=== PATIENT | female | born 2000 | race Hispanic/Latino ===

== ENCOUNTER 2021-03-10 09:04 | Emergency (ER) | payer BC ==
[2021-03-10] MEDS ORDERED: Acetaminophen 500 MG TAB ONE (09:26)
[2021-03-10 10:22] LABS: SARS-CoV-2 NAA Rapid Test Not Detected (NotDetected)
== END 2021-03-10 11:29 | disposition home or self-care (01) ==
LOC: CSHERS 09:04
DX: J11.1 Influenza due to unidentified influenza virus with other respiratory manifestations (principal); Z20.822 Contact with and (suspected) exposure to COVID-19
CPT/HCPCS: 0240U; 87081; 87430; 99283